=== PATIENT | male | born 1955 | race African-American/Black ===

== ENCOUNTER 2019-09-12 10:44 | Inpatient (IN) | payer OTHER ==
[2019-09-12 11:18] VITALS: BMI 24.7
--- NOTE | 2019-09-12 12:27 | HP ---
CIWA Score Nausea/Vomitin-No Nausea/No Vomiting Muscle Tremors: None Anxiety: 2 Agitation: 0-Normal Activity Paroxysmal Sweats: No Perspiration Orientation: 0-Oriented Tacttile Disturbances: 0-None Auditory Disturbances: 0-None Visual Disturbances: 0-None Headache: 0-None Present CIWA-Ar Total Score: 2 - Admission Criteria OASAS Guidelines: Admission for Medically Managed Detox: Requires at least one of the followin. CIWA greater than 12 2. Seizures within the past 24 hours 3. Delirium tremens within the past 24 hours 4. Hallucinations within the past 24 hours 5. Acute intervention needed for co occurring medical disorder 6. Acute intervention needed for co occurring psychiatric disorder 7. Severe withdrawal that cannot be handled at a lower level of care (continued vomiting, continued diarrhea, abnormal vital signs) requiring intravenous medication and/or fluids 8. Admitting History and Physical - Smoking History Smoking history: Current some day smoker Have you smoked in the past 12 months: Yes Aproximately how many cigarettes per day: 2 Admission ROS [facility] - [facility] Allergies/Adverse Reactions: Allergies Allergy/AdvReac Type Severity Reaction Status Date / Time No Known Allergies Allergy Verified 09/12/19 11:09 History of Present Illness: Search Terms: bryson gunn, 1955 Search Date: 09/12/2019 12:22:10 PM This report was requested by: Bertha Amaya | Reference #: [id number] There are no results for the search terms that you entered. pt here requesting detox from etoh use , reports 1/5 day since 18 mo ago , priro to which he was not drinking " as much " , reports no blackout or seizures , denies tremors , latest use 3 am today . cocaine : 50 $/day via inhalation and smoking cannabis use - 10 $/day tobacco : occasional 2-3 cigs/day pmhx : htn w/ esrd , on dialysis 15 yrs ago x 18 mo , then d/c'd , A- Fib x 2 yrs on AC ( Eliquis) meds confirmed w/ pharmacy on record - per pt not taking some meds as confirmed by pharmacy : Furosemide 40 mg q d and lipitor 40 mg qhs , states taking " once in a while, maybe 2 x /week " Exam Limitations: No Limitations - Ebola screening Have you traveled outside of the country in the last 21 days: No Have you had contact with anyone from an Ebola affected area: No Do you have a fever: No - Review of Systems Constitutional: No Symptoms Reported EENT: reports: Other (glasses) Respiratory: reports: No Symptoms reported Cardiac: reports: No Symptoms Reported GI: reports: No Symptoms Reported : reports: No Symptoms Reported Musculoskeletal: reports: No Symptoms Reported Integumentary: reports: Rash (right forearm - rerports chronic) Neuro: reports: No Symptoms reported Endocrine: reports: No Symptoms Reported Psychiatric: reports: Orientated x3 Patient History - Patient Medical History Hx Asthma: No Hx Chronic Obstructive Pulmonary Disease (COPD): No Hx Cardiac Disorders: Yes Hx Hypertension: Yes (hx a-fib) Hx Seizures: No Hx Diabetes: No Hx Gastrointestinal Disorders: No Hx Genitourinary Disorders: No Hx Sexually Transmitted Disorders: No Hx Renal Disease (ESRD): No Hx Depression: No Hx Suicide Attempt: No Hx Schizophrenia: No - Patient Surgical History Past Surgical History: Yes Hx Cardiac Surgery: Yes (pace maker implant) Other Surgical History: DIALYSIS SHUNT LT WRIST - PPD History Date: 01/07/12 - Smoking Cessation Smoking history: Current some day smoker Have you smoked in the past 12 months: Yes Aproximately how many cigarettes per day: 2 Hx Chewing Tobacco Use: No Initiated information on smoking cessation: No - Substances abused Alcohol Substance route: Oral Frequency: Daily Amount used: 5th of vodka Age of first use: 19 Date of last use: 09/12/19 Marijuana/Hashish Substance route: Smoking Frequency: Daily Amount used: $10 Age of first use: 17 Date of last use: 09/12/19 Heroin Substance route: Inhalation Frequency: 1-2 times per week Amount used: $20 Age of first use: 59 Date of last use: 09/09/19 Admission Physical Exam BHS - Vital Signs Vital Signs: Vital Signs - 24 hr 09/12/19 11:12 Temperature 99.0 F Pulse Rate 58 L Respiratory 20 Rate Blood Pressure 109/67 - Physical General Appearance: Yes: No Apparent Distress HEENTM: Yes: EOMI, Hearing grossly Normal, Normocephalic, Normal Voice Respiratory: Yes: Chest Non-Tender, Lungs Clear, Normal Breath Sounds, No Respiratory Distress, No Accessory Muscle Use Neck: Yes: No masses,lesions,Nodules, Trachea in good position Cardiology: Yes: S1, S2, Irregular Abdominal: Yes: Non Tender, Soft Musculoskeletal: Yes: Gait Steady, Joint Stiffness (felisha knees) Extremities: Yes: Pedal Edema Neurological: Yes: Fully Oriented, Alert, Motor Strength 5/5, Depressed Affect Integumentary: Yes: Warm, Rash (right forearm, raised , well- circumscribed) - Diagnostic (1) Cocaine use disorder Current Visit: Yes Status: Chronic (2) Alcohol use disorder Current Visit: Yes Status: Chronic Breathalyzer - Breathalyzer Breathalyzer: 0 Urine Drug Screen - Test Device Lot number: [id number] Expiration date: 05/21/21 - Control Is test valid?: Yes - Results Drug screen NEGATIVE: No Urine drug screen results: THC-Marijuana, ARTURO-Cocaine, BZO-Benzodiazepines Inpatient Rehab Admission - Rehab Decision to Admit Inpatient rehab admission?: Yes - Initial Determination Are CD services needed?: Yes Free of communicable disease: Yes Not in need of hospitalization: Yes - Rehab Admission Criteria Previous failed treatment: No Poor recovery environment: Yes Comorbidities: Yes Lacks judgement: Yes Patient is meeting Inpatient Rehab admission criteria:: Yes
[2019-09-12] MEDS ORDERED: MAGNESIUM CITRATE 300 ML BOTTLE PO PRN (13:02)
[2019-09-12] MEDS ORDERED: P-EPHED 60MG/TRIPROLIDI 2.5MG TABLET PO PRN (13:02)
[2019-09-12] MEDS ORDERED: guaiFENesin 200 MG/10 ML 10 ML UNIT-DOSE CUPS PO PRN (13:02)
[2019-09-12] MEDS ORDERED: MAG HYDROX/AL HYDROX/SIMETH 30 ML UNIT-DOSE CUP PO PRN (13:02)
[2019-09-12] MEDS ORDERED: MAGNESIUM HYDROX 2400MG/30ML ORAL SUSPENSION 30 ML CUP PO PRN (13:02)
[2019-09-12] MEDS ORDERED: ACETAMINOPHEN 325 MG TABLET (FP) PO PRN (13:02)
[2019-09-12] MEDS ORDERED: LOPERAMIDE HCL 2 MG CAPSULE PO PRN (13:02)
[2019-09-12] MEDS ORDERED: TUBERCULIN PPD 5 TU/0.1ML VIAL ID ONE (14:43)
[2019-09-12] MEDS: hydrALAZINE HCL 50 MG TABLET (FP) PO SCH ×2 (14:48→21:11)
[2019-09-12] MEDS: APIXABAN 5 MG TABLET PO SCH ×2 (15:47→21:11)
[2019-09-12 18:40] LABS: HEMATOCRIT 42.7 % (35.4-49); HEMOGLOBIN 14.3 GM/dL (11.7-16.9); MCH 31.5 pg (25.7-33.7); MCHC 33.5 g/dl (32.0-35.9); MEAN CELL VOLUME 94.2 fl (80-96); MEAN PLT VOLUME 9.4 fl (7.5-11.1); PLATELET COUNT 139 K/MM3 (134-434); RBC 4.54 M/mm3 (4.00-5.60); RDW 13.2 % (11.9-15.9); WHITE BLOOD COUNT 4.3 K/mm3 (4.0-10.0)
[2019-09-12 18:49] LABS: ALBUMIN 3.2 g/dl (3.4-5.0); BILIRUBIN,TOTAL 0.6 mg/dL (0.2-1); CALCIUM 8.7 mg/dL (8.5-10.1); CREATININE 1.3 mg/dL (0.55-1.3); POTASSIUM 3.3 mmol/L (3.5-5.1); TOT PROT 6.4 g/dl (6.4-8.2)
[2019-09-12] MEDS: MELATONIN 5 MG TABLETS PO PRN (21:11)
[2019-09-12] MEDS: THIAMINE HCL 100 MG TABLET (FP) PO SCH (21:12)
[2019-09-12] MEDS: ENALAPRIL MALEATE 10 MG TABLET (FP) PO SCH (21:13)
[2019-09-12] MEDS: METOPROLOL TARTRATE 50 MG TABLET (FP) PO SCH (21:13)
[2019-09-13] MEDS: hydrALAZINE HCL 50 MG TABLET (FP) PO SCH ×3 (06:19→21:53)
[2019-09-13] MEDS: ENALAPRIL MALEATE 10 MG TABLET (FP) PO SCH ×2 (09:53→21:53)
[2019-09-13] MEDS: PRENATAL VITAMINS W/ FOLIC ACID TABLET (FP) PO SCH (09:53)
[2019-09-13] MEDS: NIFEdipine E.R. 90 MG TABLET (FP) PO SCH (09:53)
[2019-09-13] MEDS: METOPROLOL TARTRATE 50 MG TABLET (FP) PO SCH ×2 (09:53→21:53)
[2019-09-13] MEDS: APIXABAN 5 MG TABLET PO SCH ×2 (09:54→21:53)
[2019-09-13 11:03] LABS: PH,URINE 5.5 (5.0-8.0); URINE APPEARANCE CLEAR; URINE BILIRUBIN NEGATIVE (NEGATIVE); URINE COLOR YELLOW; URINE GLUCOSE (UA) NEGATIVE (NEGATIVE); URINE KETONE NEGATIVE (NEGATIVE); URINE LEUK ESTERASE NEGATIVE (NEGATIVE); URINE NITRITE NEGATIVE (NEGATIVE); URINE PROTEIN NEGATIVE (NEGATIVE); URINE UROBILINOGEN 0.2 mg/dL (0.2-1.0)
[2019-09-13] MEDS ORDERED: PNEUMOC 13-VAL CONJ-DIP CRM/PF 0.5 ML DISP.SYRIN IM ONE (12:00)
[2019-09-13] MEDS ORDERED: PNEUMOCOCCAL 23 VACCINE 0.5 ML VIAL IM ONE (12:00)
[2019-09-13] MEDS: MELATONIN 5 MG TABLETS PO PRN (21:53)
[2019-09-13] MEDS: THIAMINE HCL 100 MG TABLET (FP) PO SCH (21:53)
[2019-09-14] MEDS: MENTHOL/PHENOL 1 EACH UD MM PRN ×3 (03:27→18:54)
[2019-09-14] MEDS: hydrALAZINE HCL 50 MG TABLET (FP) PO SCH ×3 (06:20→21:08)
[2019-09-14] MEDS: APIXABAN 5 MG TABLET PO SCH ×2 (09:49→21:08)
[2019-09-14] MEDS: PRENATAL VITAMINS W/ FOLIC ACID TABLET (FP) PO SCH (09:49)
[2019-09-14] MEDS: NIFEdipine E.R. 90 MG TABLET (FP) PO SCH (09:49)
[2019-09-14] MEDS: ENALAPRIL MALEATE 10 MG TABLET (FP) PO SCH ×2 (09:49→21:33)
[2019-09-14] MEDS: METOPROLOL TARTRATE 50 MG TABLET (FP) PO SCH ×2 (09:49→21:08)
[2019-09-14] MEDS: THIAMINE HCL 100 MG TABLET (FP) PO SCH (21:07)
[2019-09-14] MEDS: MELATONIN 5 MG TABLETS PO PRN (21:08)
[2019-09-15] MEDS: hydrALAZINE HCL 50 MG TABLET (FP) PO SCH ×3 (06:46→21:18)
[2019-09-15] MEDS: PRENATAL VITAMINS W/ FOLIC ACID TABLET (FP) PO SCH (10:57)
[2019-09-15] MEDS: METOPROLOL TARTRATE 50 MG TABLET (FP) PO SCH ×2 (10:57→21:20)
[2019-09-15] MEDS: NIFEdipine E.R. 90 MG TABLET (FP) PO SCH (10:57)
[2019-09-15] MEDS ORDERED: PT OWN MED DRAWER 7, Y5N ONE ×2 (10:58→19:19)
[2019-09-15] MEDS: METHYL SALICYLATE/MENTHOL OINT 30 GM TUBE TP SCH ×2 (11:01→21:20)
[2019-09-15] MEDS: TOLNAFTATE 1% CREAM 15 GM TUBE TP SCH ×2 (11:03→21:19)
[2019-09-15] MEDS: APIXABAN 5 MG TABLET PO SCH ×2 (12:07→21:19)
[2019-09-15] MEDS: ENALAPRIL MALEATE 10 MG TABLET (FP) PO SCH ×2 (12:07→21:18)
--- NOTE | 2019-09-15 12:17 | PN ---
[facility] Progress Note Note: Patient presents for evaluation of swelling of legs and knee pain. Currently in rehab for alcohol and cocaine dependence. Patient has hx of PAD, HTN and AFIB. Patient states having knee pain x months and symptoms are chronic. Localized behind knee, dull ache and non-radiating. Laboratory Tests 09/12/19 09/12/19 09/12/19 13:15 13:15 13:15 WBC 4.3 RBC 4.54 Hgb 14.3 Hct 42.7 MCV 94.2 MCH 31.5 MCHC 33.5 RDW 13.2 Plt Count 139 MPV 9.4 Sodium 143 Potassium 3.3 L Chloride 109 H Carbon Dioxide 26 Anion Gap 7 L BUN 17.0 Creatinine 1.3 Est GFR (CKD-EPI)AfAm 67.78 Est GFR (CKD-EPI)NonAf 58.48 Random Glucose 121 H Calcium 8.7 Total Bilirubin 0.6 AST 23 ALT 36 Alkaline Phosphatase 123 H Total Protein 6.4 Albumin 3.2 L Urine Color Urine Appearance Urine pH Ur Specific [place] Urine Protein Urine Glucose (UA) Urine Ketones Urine Blood Urine Nitrite Urine Bilirubin Urine Urobilinogen Ur Leukocyte Esterase RPR Titer Nonreactive HIV 1&2 Antibody Screen HIV P24 Antigen 09/13/19 09/13/19 05:40 08:40 WBC RBC Hgb Hct MCV MCH MCHC RDW Plt Count MPV Sodium Potassium Chloride Carbon Dioxide Anion Gap BUN Creatinine Est GFR (CKD-EPI)AfAm Est GFR (CKD-EPI)NonAf Random Glucose Calcium Total Bilirubin AST ALT Alkaline Phosphatase Total Protein Albumin Urine Color Yellow Urine Appearance Clear Urine pH 5.5 Ur Specific [place] 1.014 Urine Protein Negative Urine Glucose (UA) Negative Urine Ketones Negative Urine Blood Negative Urine Nitrite Negative Urine Bilirubin Negative Urine Urobilinogen 0.2 Ur Leukocyte Esterase Negative RPR Titer HIV 1&2 Antibody Screen Negative HIV P24 Antigen Negative Vital Signs Temperature 97.9 F 09/15/19 07:58 Pulse Rate 95 H 09/15/19 09:30 Respiratory Rate 18 09/15/19 09:30 Blood Pressure 136/80 09/15/19 09:30 O2 Sat by Pulse Oximetry (%) PE: alert and oriented x 3 skin warm and dry car s1s2 resp cta bl, no rales or rhonchi ext bilateral LEs with +1 pitting edema, old surgical scars. No calf redness, tenderness of bilateral calfs amb ad karly A/P: Edema knee pain hypokalemia TEDS stockings leg elevation prn bengay ointment for symptomatic pain-no motrin due to GFR of 67 Tylenol prn continue current meds, will not add diurectic due to low GFR, however will repeat CMP today to check renal function and K+ level. monitor symptoms, if swelling persists consider venous doppler and/or diuretic. monitor clinically
--- NOTE | 2019-09-15 12:26 | PN ---
[facility] Progress Note Note: Laboratory Tests 09/12/19 09/12/19 09/12/19 13:15 13:15 13:15 WBC 4.3 RBC 4.54 Hgb 14.3 Hct 42.7 MCV 94.2 MCH 31.5 MCHC 33.5 RDW 13.2 Plt Count 139 MPV 9.4 Sodium 143 Potassium 3.3 L Chloride 109 H Carbon Dioxide 26 Anion Gap 7 L BUN 17.0 Creatinine 1.3 Est GFR (CKD-EPI)AfAm 67.78 Est GFR (CKD-EPI)NonAf 58.48 Random Glucose 121 H Calcium 8.7 Total Bilirubin 0.6 AST 23 ALT 36 Alkaline Phosphatase 123 H Total Protein 6.4 Albumin 3.2 L Urine Color Urine Appearance Urine pH Ur Specific [place] Urine Protein Urine Glucose (UA) Urine Ketones Urine Blood Urine Nitrite Urine Bilirubin Urine Urobilinogen Ur Leukocyte Esterase RPR Titer Nonreactive HIV 1&2 Antibody Screen HIV P24 Antigen 09/13/19 09/13/19 05:40 08:40 WBC RBC Hgb Hct MCV MCH MCHC RDW Plt Count MPV Sodium Potassium Chloride Carbon Dioxide Anion Gap BUN Creatinine Est GFR (CKD-EPI)AfAm Est GFR (CKD-EPI)NonAf Random Glucose Calcium Total Bilirubin AST ALT Alkaline Phosphatase Total Protein Albumin Urine Color Yellow Urine Appearance Clear Urine pH 5.5 Ur Specific [place] 1.014 Urine Protein Negative Urine Glucose (UA) Negative Urine Ketones Negative Urine Blood Negative Urine Nitrite Negative Urine Bilirubin Negative Urine Urobilinogen 0.2 Ur Leukocyte Esterase Negative RPR Titer HIV 1&2 Antibody Screen Negative HIV P24 Antigen Negative Vital Signs Temperature 97.9 F 09/15/19 07:58 Pulse Rate 95 H 09/15/19 09:30 Respiratory Rate 18 09/15/19 09:30 Blood Pressure 136/80 09/15/19 09:30 O2 Sat by Pulse Oximetry (%) Labs reviewed with patient and HIV results given.
[2019-09-15 16:29] LABS: ALBUMIN 3.4 g/dl (3.4-5.0); BILIRUBIN,TOTAL 0.8 mg/dL (0.2-1); CREATININE 1.1 mg/dL (0.55-1.3); POTASSIUM 3.8 mmol/L (3.5-5.1); TOT PROT 6.7 g/dl (6.4-8.2)
[2019-09-15] MEDS: THIAMINE HCL 100 MG TABLET (FP) PO SCH (21:18)
[2019-09-15] MEDS: MELATONIN 5 MG TABLETS PO PRN (21:18)
[2019-09-16] MEDS: hydrALAZINE HCL 50 MG TABLET (FP) PO SCH ×3 (06:23→21:21)
[2019-09-16] MEDS ORDERED: PT OWN MED DRAWER 7, Y5N ONE (09:18)
[2019-09-16] MEDS: ENALAPRIL MALEATE 10 MG TABLET (FP) PO SCH ×2 (09:56→21:21)
[2019-09-16] MEDS: METHYL SALICYLATE/MENTHOL OINT 30 GM TUBE TP SCH ×2 (09:56→21:21)
[2019-09-16] MEDS: METOPROLOL TARTRATE 50 MG TABLET (FP) PO SCH ×2 (09:56→21:21)
[2019-09-16] MEDS: NIFEdipine E.R. 90 MG TABLET (FP) PO SCH (09:56)
[2019-09-16] MEDS: PRENATAL VITAMINS W/ FOLIC ACID TABLET (FP) PO SCH (09:56)
[2019-09-16] MEDS: APIXABAN 5 MG TABLET PO SCH ×2 (09:57→21:21)
[2019-09-16] MEDS: TOLNAFTATE 1% CREAM 15 GM TUBE TP SCH ×2 (09:57→21:22)
[2019-09-16] MEDS ORDERED: COLLOIDAL OATMEAL 1 BAR EACH TP PRN (15:00)
--- NOTE | 2019-09-16 19:37 | EKG ---
Test Reason : Blood Pressure : / mmHG Vent. Rate : 079 BPM Atrial Rate : 079 BPM P-R Int : 180 ms QRS Dur : 162 ms QT Int : 450 ms P-R-T Axes : -28 -76 030 degrees QTc Int : 516 ms Atrial-paced rhythm WITH PREMATURE ATRIAL COMPLEXES RIGHT BUNDLE BRANCH BLOCK LEFT ANTERIOR FASCICULAR BLOCK BIFASCICULAR BLOCK MINIMAL VOLTAGE CRITERIA FOR LVH, MAY BE NORMAL VARIANT POSSIBLE LATERAL INFARCT , AGE UNDETERMINED ABNORMAL ECG NO PREVIOUS ECGS AVAILABLE Confirmed by MD COLLEEN, KIMBERLY ([id number]) on 09/16/2019 7:37:37 PM Referred By: GABRIEL RAHMAN Confirmed By:KIMBERLY MACIAS MD
[2019-09-16] MEDS: MELATONIN 5 MG TABLETS PO PRN (21:21)
[2019-09-16] MEDS: THIAMINE HCL 100 MG TABLET (FP) PO SCH (21:21)
[2019-09-17] MEDS: hydrALAZINE HCL 50 MG TABLET (FP) PO SCH ×3 (06:31→21:50)
[2019-09-17] MEDS: ENALAPRIL MALEATE 10 MG TABLET (FP) PO SCH ×2 (10:09→21:50)
[2019-09-17] MEDS: PRENATAL VITAMINS W/ FOLIC ACID TABLET (FP) PO SCH (10:09)
[2019-09-17] MEDS: METOPROLOL TARTRATE 50 MG TABLET (FP) PO SCH ×2 (10:09→21:50)
[2019-09-17] MEDS: NIFEdipine E.R. 90 MG TABLET (FP) PO SCH (10:09)
[2019-09-17] MEDS: APIXABAN 5 MG TABLET PO SCH ×2 (10:10→21:50)
[2019-09-17] MEDS: TOLNAFTATE 1% CREAM 15 GM TUBE TP SCH ×2 (10:10→21:51)
[2019-09-17] MEDS: KETOCONAZOLE 2% CREAM - 60GM TUBE TP SCH (10:10)
[2019-09-17] MEDS: METHYL SALICYLATE/MENTHOL OINT 30 GM TUBE TP SCH ×2 (10:12→21:51)
[2019-09-17] MEDS: THIAMINE HCL 100 MG TABLET (FP) PO SCH (21:50)
[2019-09-17] MEDS: MELATONIN 5 MG TABLETS PO PRN (21:50)
[2019-09-18] MEDS: hydrALAZINE HCL 50 MG TABLET (FP) PO SCH ×3 (06:19→21:18)
[2019-09-18] MEDS ORDERED: PT OWN MED DRAWER 7, Y5N ONE ×2 (09:16→21:20)
[2019-09-18] MEDS: PRENATAL VITAMINS W/ FOLIC ACID TABLET (FP) PO SCH (09:54)
[2019-09-18] MEDS: ENALAPRIL MALEATE 10 MG TABLET (FP) PO SCH ×2 (09:54→21:18)
[2019-09-18] MEDS: NIFEdipine E.R. 90 MG TABLET (FP) PO SCH (09:54)
[2019-09-18] MEDS: METOPROLOL TARTRATE 50 MG TABLET (FP) PO SCH ×2 (09:54→21:18)
[2019-09-18] MEDS: APIXABAN 5 MG TABLET PO SCH ×2 (09:54→21:18)
[2019-09-18] MEDS: METHYL SALICYLATE/MENTHOL OINT 30 GM TUBE TP SCH ×2 (09:55→21:20)
[2019-09-18] MEDS: KETOCONAZOLE 2% CREAM - 60GM TUBE TP SCH (09:56)
--- NOTE | 2019-09-18 10:19 | DS ---
[facility] Rehab Discharge Summary - [facility] Rehab Discharge Summary Admission Date: 09/12/19 Discharge Date: 09/18/19 - History Present History: Alcohol dependence, Cocaine dependence Pertinent Past History: pt with etoh use, reports 1/5 day since 18 mo ago cocaine : 50 $/day via inhalation and smoking cannabis use - 10 $/day tobacco : occasional 2-3 cigs/day pmhx : htn w/ esrd , on dialysis 15 yrs ago x 18 mo , then d/c'd , A- Fib x 2 yrs on AC ( Eliquis) - Discharge Physical Exam Vital Signs: Vital Signs Temperature 98 F 09/18/19 07:08 Pulse Rate 73 09/18/19 07:08 Respiratory Rate 18 09/18/19 07:08 Blood Pressure 132/78 09/18/19 07:08 O2 Sat by Pulse Oximetry (%) Pertinent Admission Physical Exam Findings: Physical General Appearance: No Apparent Distress HEENTM: Normocephalic, PERRLA Respiratory: Lungs Clear, Neck: Supple, Trachea in good position Cardiology: S1, S2, Irregular Abdominal: +BS, Non Tender, Soft Musculoskeletal: Yes: Gait Steady, Joint Stiffness (felisha knees) Neurological: CN 2-12 intact, Motor Strength 5/5, Integumentary: Rash-right forearm, raised, well- circumscribed - Treatment Discharge Condition: Outpatient referral accepted (Medically stable for discharge.Patient will go to [facility] for aftercare.) Hospital Course: Patient attended groups, had 1;1 with counselor. Was adherent to treatment and medication regimen. He had no significant medical problems while in rehab. - Medication Discharge Medications: Ambulatory Orders Nifedipine [Nifedipine ER] 90 mg PO DAILY 01/04/12 Enalapril Maleate [Vasotec -] 20 mg PO BID #0 tablet 01/11/12 traZODone HCL [Trazodone HCl] 50 mg PO HS 09/12/19 Apixaban [Eliquis] 5 mg PO BID #60 tablet 09/18/19 Enalapril Maleate [Vasotec -] 20 mg PO BID #60 tablet 09/18/19 Hydralazine HCl 50 mg PO DAILY #30 tablet 09/18/19 Metoprolol Tartrate [Lopressor -] 50 mg PO DAILY #60 tablet 09/18/19 Nifedipine ER [Procardia XL -] 90 mg PO DAILY #60 tab.er.24 09/18/19 - Medication-Assisted Treatment (MAT) Medication-Assisted Treatment (MAT): No - Discharge Instructions Diet, activity, other medical instructions: Diet: as tolerated Activity: as tolerated Other medical instructions: Please follow up with aftercare referral. - Diagnosis (1) Alcohol use disorder Current Visit: Yes Status: Chronic (2) Cocaine use disorder Current Visit: Yes Status: Chronic - Follow-up Referral Minutes to complete discharge: 20 - AMA Did Patient Leave Against Medical Advice: No
[2019-09-18] MEDS: TOLNAFTATE 1% CREAM 15 GM TUBE TP SCH ×2 (10:39→21:20)
[2019-09-18] MEDS: THIAMINE HCL 100 MG TABLET (FP) PO SCH (21:18)
[2019-09-18] MEDS: MELATONIN 5 MG TABLETS PO PRN (21:18)
[2019-09-19] MEDS: hydrALAZINE HCL 50 MG TABLET (FP) PO SCH (06:14)
[2019-09-19 06:51] VITALS: BP 132/82; PULSE 82; TEMP 98.1
[2019-09-19] MEDS ORDERED: PT OWN MED DRAWER 7, Y5N ONE ×2 (08:16→08:21)
== END 2019-09-19 08:27 | disposition home or self-care (01) | DRG 772 ==
LOC: YASAS 10:44 → Y3W 13:31
PROVIDERS: ADMIT Neuromusculoskeletal Medicine & OMM; ATTEND Neuromusculoskeletal Medicine & OMM
PROC: HZ42ZZZ Group Counseling for Substance Abuse Treatment, Cognitive-Behavioral (ICD-10-PCS; principal; 2019-09-12)
DX: F10.20 Alcohol dependence, uncomplicated (principal); F14.20 Cocaine dependence, uncomplicated; F12.20 Cannabis dependence, uncomplicated; F17.210 Nicotine dependence, cigarettes, uncomplicated; I13.11 Hypertensive heart and chronic kidney disease without heart failure, with stage 5 chronic kidney disease, or end stage renal disease; N18.6 End stage renal disease; N17.8 Other acute kidney failure; Z99.2 Dependence on renal dialysis; I48.91 Unspecified atrial fibrillation; Z79.01 Long term (current) use of anticoagulants; Z95.0 Presence of cardiac pacemaker; R60.0 Localized edema; M25.561 Pain in right knee; M25.562 Pain in left knee
CPT/HCPCS: 36415; 80053; 81003; 85027; 86593; 87389; 90732; 93005; 93010; G0009